=== PATIENT | male | born 1945 | race Caucasian/White ===

== ENCOUNTER 2021-02-19 11:57 | Inpatient (IN) | payer OTHER, MEDICARE ==
[~2021-02-19] VITALS: Ht 188 cm; Wt 77.2 kg
[2021-02-19] MEDS ORDERED: TYLENOL325 MG PO (14:26)
[2021-02-19] MEDS ORDERED: CHILDREN'S ASPI81 M1 PO (14:28)
[2021-02-19] MEDS ORDERED: LIPITOR 20 MG T20 M1 PO (14:30)
[2021-02-19] MEDS ORDERED: MARINOL 2.5 MG2.5 M1 PO (14:33)
[2021-02-19] MEDS ORDERED: MIDODRINE HCL 55 M1 PO (14:36)
[2021-02-19] MEDS ORDERED: SENNA-S 8.6-501 EACH PO ×2 (14:38→14:40)
[2021-02-19] MEDS ORDERED: TRAMADOL 50 MG50 MG PO (14:40)
[2021-02-19] MEDS ORDERED: CLARITIN10 M3 PO (14:41)
--- NOTE | 2021-02-19 16:58 | NUR ---
PATIENT KU COVID RESULTS FROM TESTING THIS DATE, 02/19/21, NOT DETECTED.
[2021-02-19 18:15] VITALS: BP 121/67
--- NOTE | 2021-02-19 19:37 | NUR ---
PT ARRIVED TO UNIT AROUND 1800 AND FAMILY WAS AT BEDSIDE. PT NOTED THAT HE HAS ADVANCED DIRECTIVES, BUT THAT HIS COULD BRING THE PAPERWORK LATER. PT COULD NOT RECALL DETAILS OF THE AD. REPORT GIVEN TO ONCOMING SHIFT AND PT RESTING IN CHAIR WITH NO COMPLAINTS.
--- NOTE | 2021-02-19 23:48 | NUR ---
PT ALERT AND ORIENTED X 4. UP IN RECLINER ALL EVENING. TRANSFERRED TO BED AT WITH ASSIST X 1. CHEST INCISION C/D/I, HEALING. ABD INCISIONS X 5 C/D/I. LEFT CHEST TUBE SITE INCISION C/D/I. PT DENIES PAIN OR DISCOMFORT. BED ALARM ON FOR SAFETY. PT APPEARS TO BE SLEEPING ON HOURLY ROUNDS.
[2021-02-20 04:50] LABS: HEMATOCRIT 25.1 % (42.0-52.0); HEMOGLOBIN 8.3 gm/dL (14.0-18.0); MCH 29.8 pg (26.0-34.0); MCHC 32.9 g/dL (28.0-37.0); MCV 90.6 fL (80.0-100.0); RBC 2.77 mil/uL (4.50-6.00); RDW 15.5 % (10.5-14.5)
[2021-02-20 05:19] LABS: CALCIUM 8.5 mg/dL (8.5-10.1); CREATININE 0.9 mg/dL (0.7-1.3); POTASSIUM 4.6 mmol/L (3.5-5.1)
[2021-02-20] MEDS ORDERED: ASA81BEC PO ×4 (05:37→05:42)
[2021-02-20] MEDS ORDERED: LIPITOR 20 MG T20 M1 PO (05:37)
[2021-02-20] MEDS ORDERED: MARINOL 2.5 MG2.5 M1 PO (05:38)
[2021-02-20] MEDS ORDERED: MIDODRINE HCL2.5 M1 PO (05:39)
[2021-02-20 08:00] VITALS: BP 117/62
[2021-02-20 08:55] LABS: % SATURATION 9 % (20-39); IRON 23 ug/dL (65-175); TIBC 243 ug/dL (250-450)
[2021-02-20 09:22] LABS: FOLIC ACID 6.4 ng/mL (8.6-58.9)
--- NOTE | 2021-02-20 09:41 | NUR ---
Chart review. Cm visited with patient, he is a & o x 4, pleasant and able to make his needs know. Intro to cm, team meeting and dcp. He would like to go home and not get covid. 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 live at home with jean pierre at the [place]. Have stairs, everything on main level. Manage own medication. Drives vehicle. No hh or rehab in the past. PCP Dr Deyvi tello at the [facility]. Support from and daughter.
--- NOTE | 2021-02-20 10:00 | NUR ---
PT SITTING UP IN CHAIR FOR BREAKFAST. PT ABLE TO TAKE MEDS WITH THIN WATER. PT HAS SPLINTING PILLOW IN REACH. PT DENIES ANY PAIN. PT HAS NO EDEMA TO LOWER EXT. PT DIDN'T WANT TO RECIEVE FLU SHOT THIS AM. PT NOT SURE YET ON GETTING THE FLU SHOT. PT STATED HE LIKES TO GO FISHING DUE TO LIVING DOWN BY MEDIA OF [facility] WHEN ASKED ABOUT HIS HOBBIES.
[2021-02-20] MEDS ORDERED: NITROSTAT0.4 M1 SUBLING (11:23)
[2021-02-20] MEDS ORDERED: NORVASC5 M1 PO (11:24)
[2021-02-20] MEDS ORDERED: ADVIL200 M3 PO (11:25)
--- NOTE | 2021-02-20 13:34 | NUR ---
Team meeting, recommendation. Dc 02/24 home with hh t transition to outpatient cardiac rehab, no driving till cleared by . FWW
[2021-02-20 19:20] VITALS: BP 107/61
--- NOTE | 2021-02-21 03:55 | NUR ---
assumed care approx 1900 evening 02/20. pt sitting up in recliner at change of shift resting. assisted into bed and gown at hs. pt took hs meds with water tolerating well. pt appears to be sleeping soundly. bed alarm on and call light in reach. will continue to monitor.
[2021-02-21 07:15] VITALS: BP 109/61
--- NOTE | 2021-02-21 08:42 | NUR ---
ASSUMED CARE AT 0700. PATIENT IS ALERT AND ORIENTEDX4. PATIENT BERG'S, OUTREACH EDUCATOR ARE EQUAL. LUNGS ARE CLEAR AND DEMINISHED. ENCOURAGED PATIENT TO TCDB. CHEST INCISION CONTINUES TO HEAL. LEFT LEG INCISION CONTINUES TO HEAL. PATIENT ABD IS SOFT WITH BSX4. PATIENT IS VOIDING TERENCE COLORED URINE. PATIENT IS UP WITH GAIT BELT AND WALKER. FALL AND SAFETY PROTOCOLS IN PLACE. DENIES PAIN AT THIS TIME. WILL CONTINUE TO MONITER.
--- NOTE | 2021-02-21 13:37 | NUR ---
[facility] will deliver fww on friday prior to dc on 02/24/21. Referral sent to [facility], P # [phone], f # [phone]
[2021-02-21 19:48] VITALS: BP 107/62
--- NOTE | 2021-02-21 23:40 | NUR ---
PT ALERT AND ORIENTED X 4. CHEST AND LEFT LEG INCISIONS C/D/I, HEALING. PT TOOK HS MEDS WITH WATER WITHOUT DIFFICULTY. PT DENIES PAIN OR DISCOMFORT. BED ALARM ON FOR SAFETY. PT APPEARS TO BE SLEEPING ON HOURLY ROUNDS.
[2021-02-22 08:00] VITALS: BP 114/67
--- NOTE | 2021-02-22 09:21 | NUR ---
ADM TYLENOL 325MG X1 FOR PAIN TO RT KNEE. PT WAS WORKING WITH PHYSICAL THERAPY AND HIS KNEE IS STARTING TO HURT.
--- NOTE | 2021-02-22 09:21 | NUR ---
PT FINISHED WALKING WITH THERAPY. PT SITTING IN CHAIR IN ROOM. PT DENIES ANY PAIN AT THIS TIME. PT TOOK MEDS WITH WATER WITHOUT ANY ISSUES. PT LUNGS CLEAR. PT HAS BOWEL SOUNDS. PT HAS INCISION TO STERNAL AREA WITH PRECAUTIONS. PT PLEASANT AND COOROPERATIVE. PT USES WALKER WITH AMBULATION.
[2021-02-22 20:00] VITALS: BP 105/67
--- NOTE | 2021-02-23 04:33 | NUR ---
ASSUMED CARE AT 1900 0F 02/22. PATIENT IS A&OX4, COOPERATIVE AND CALM. REPORTS THAT RIGHT KNEE IS FEELING BETTER THIS EVENING. NO BM FOR A COUPE DAYS, DENIES ABD DISCOMFORT, REPORTS PASSING FLATUS. BS ARE ACTIVE IN ALL 4 QUADRANTS, ABD IS SOFT. SCHEDULED STOOL SOFTNER AND LAXITIVE ADMINISTERED AT HS. URINAL AT BEDSIDE. SLEEPING DURING HOURLY ROUNDS. FALL PRECAUTIONS IN PLACE, CALL LIGHT WITHIN REACH. WILL CONTINUE TO MONITOR.
[2021-02-23 08:00] VITALS: BP 117/76
--- NOTE | 2021-02-23 08:44 | NUR ---
PT WORKING WITH THERAPY. PT UP WALKING WITHOUT A WALKER. PT STATED SOME PAIN TO RT KNEE. PT HAS INCISION TO STERNAL AREA AND LEFT LE. PT TOOK MEDS WHOLE WITH THIN WATER. PT LUNGS CLEAR. PT HAS HYPERACTIVE BS AND ABD IS BLOATED. PT STATED HE HAS NOT HAD A BM IN 3 DAYS. PT STATED HE IS WAITING FOR A BM. NO COMPLAINTS OF NAUSEA.
--- NOTE | 2021-02-23 08:45 | NUR ---
ADM DICLOFINAC CREAM TO RT KNEE AFTER WALKING WITH THERAPY.
[2021-02-23] MEDS ORDERED: VITAMIN B-12500 MCG PO (13:27)
[2021-02-23] MEDS ORDERED: LIPITOR 20 MG T20 M1 PO (13:27)
[2021-02-23] MEDS ORDERED: FOLIC ACID1 MG PO (13:27)
[2021-02-23] MEDS ORDERED: MIDODRINE HCL2.5 M1 PO (13:27)
[2021-02-23] MEDS ORDERED: ARTHRITIS PAIN100 GM TOP (13:29)
[2021-02-23] MEDS ORDERED: FERREX 150 PLU1 EAC1 PO (13:29)
[2021-02-23] MEDS ORDERED: TRIPLE ANTIBI28.4 G3 TOP (13:29)
--- NOTE | 2021-02-23 14:03 | NUR ---
fww delivered by [facility]. AR home tomorrow 02/24/21. PCP Dr Rodgers. Bedside side nurse to fax dc orders and sum to [facility] at fax # [phone], phone # [phone].
--- NOTE | 2021-02-23 18:09 | NUR ---
PT WAS HERE AND WANTED TO KNOW IF PT CAN BE DISCARGED BEFORE 1200 TOMMORROW DUE TO THEY DRIVE 3 HRS BACK HOME. PT DID HAVE X2 BMS TODAY.
[2021-02-23 20:00] VITALS: BP 110/63
--- NOTE | 2021-02-24 04:37 | NUR ---
ASSUMED CARE AT 1900 OF 02/23. PATIENT IS A&OX4, DENIES PAIN OR SHORTNESS OF BREATH. PATIENT REFUSED LAXITIVE AND STOOL SOFTNER AT HS BECAUSE HE REPORTS HAVING A BM TWICE DURING THE DAY. PATIENT CONTINUES TO USE STERNAL PILLOW, AND MAINTAINS STERNAL PRECAUTIONS. STAND BY ASSIST WITH TRANSFERS AND AMBULATION, USING GB. PATIENT WAS ABLE TO PERFORM ADLS BEFORE BED WITH SUPERVISION. URINAL PLACED AT BEDSIDE. FALL PRECAUTIONS IN PLACE, CALL LIGHT WITHIN REACH. WILL CONTINUE TO MONITOR.
[2021-02-24 07:30] VITALS: BP 106/67
--- NOTE | 2021-02-24 10:20 | NUR ---
ASSUMED CARE AT 0700. PATIENT IS ALERT AND ORIENTED X4. PATIENT BERG'S, ORTHOPEDIC NURSE ARE EQUAL. LUNGS ARE CLEAR. ABD IS SOFT WITH BSX4. PATIENT CHEST INCISION CONTINUES TO HEAL. PATIENT HAS RED AREA FROM TAPE ON LEFT SIDE OF CHEST. TRIPLE ABT APPLIED AND SITE WAS LEFT OPEN TO AIR. PATIENT LEFT LEG INCISION IS DRY AND INTACT AND CONTINUES TO HEAL. UP TO THE BATHROOM WITH SBA WITH GAIT BELT TO VOID TERENCE COLORED URINE. PATIENT USES HEART PILLOW WHEN HE NEEDS TO COUGH. FALL AND SAFETY PROTOCOLS IN PLACE. DENIES PAIN . CONTINUES TO PROGRESS TOWARDS D/C GOALS. WILL CONTINUE TO MONITER.
[2021-02-24 10:28] VITALS: BP 106/67
[2021-02-24 11:11] VITALS: BP 106/67
--- NOTE | 2021-02-24 11:38 | NUR ---
DISCHARGE INSTRUCTIONS GIVEN TO PATIENT AND . PATIENT LEFT UNIT PER W/C WITH ALL OF HIS BELONGINGS AND HIS D/C INSTRUCTONS, AND FFW. PATIENT IS SBA FROM BED TO W/C. PATIENT LEFT IN GOOD CONDITION.
--- NOTE | 2021-02-26 07:44 | NUR ---
Faxed dc orders to [facility], fax # [phone]
--- NOTE | 2021-03-05 15:38 | PLAN ---
[facility] [place] [address] REHAB UNIT PLAN OF CARE Name: BENNY NATH Room #: 505-P [facility] IN M.R.#: [id number] Admission: 02/19/21 Attend Phys: Russell Milner MD Discharge: 02/24/21 Date of : 43 Report #: [id number] THIS REPORT FOR: cc: FAM - Family physician unknown FAM - Family physician unknown Russell Milner MD ~ DATE OF SERVICE: 02/21/2021 PROGRESS NOTE/OVERALL PLAN OF CARE HISTORY OF PRESENT ILLNESS: The patient was seen back today in followup. He was in no distress. Alert, appropriate. Midsternal incision appears to be healing well. No focal calf swelling. Transfers varied between mod to min assist, but he is improving. He is ambulating 140 feet with a front-wheeled walker. Lower extremity dressing is contact guard assistance. He is in no distress, appears to be in good spirits. ASSESSMENT: 1. Medical complex with generalized debilitation. 2. Coronary artery disease, status post coronary artery bypass grafting x3, 01/31/2021. 3. Aortic valve replacement, status post repair, 01/31/2021. 4. Orthostatic hypotension. 5. Healthcare-associated pneumonia, resolved. 6. Anemia, iron deficiency and folic acid deficiency. 7. Hyperlipidemia. PLAN: The overall plan of care is based on the pre-admit screen and information garnered from therapy assessments. 1. Estimated length of stay is the plan for him to go home this Friday as per team conference. 2. Medical prognosis reasonably good. 3. Anticipated interventions include the interdisciplinary acute inpatient rehabilitation program. 4. Anticipated functional outcomes would be for the patient to become modified independent with transfers, mobility, ADLs, and to improve his overall endurance, so he can return back home to the home setting. 5. Discharge destination would be back home where he lives with his . Three steps in. 6. Expected therapy by discipline includes PT and OT, 1-1/2 hours per day each 5 days a week throughout the duration of the acute inpatient rehabilitation stay. ADDENDUM: The patient's prognosis for significant practical improvement within a reasonable period of time appears good. Given the patient's complex medical condition and risk of further medical complication, rehabilitation services [address] [address] REHAB UNIT PLAN OF CARE Name: BENNY NATH Room #: 505-P DIS IN [facility].#: [id number] Admission: 02/19/21 Attend Phys: Russell Milner MD Discharge: 02/24/21 Date of : 43 Report #: [id number] could not be safely provided at a lower level of care such as a [facility] facility. <ELECTRONICALLY SIGNED> By: Russell Milner MD 03/05/21 [id number] [id number] Russell Milner MD /nt
== END 2021-02-24 12:00 | disposition home health service (06) | DRG 302 ==
PROVIDERS: ADMIT Physical Medicine & Rehabilitation; ATTEND Physical Medicine & Rehabilitation
DX: I25.10 Atherosclerotic heart disease of native coronary artery without angina pectoris (principal); J18.9 Pneumonia, unspecified organism; G72.81 Critical illness myopathy; I50.32 Chronic diastolic (congestive) heart failure; R53.81 Other malaise; K74.60 Unspecified cirrhosis of liver; Y95 Nosocomial condition; E78.5 Hyperlipidemia, unspecified; D52.9 Folate deficiency anemia, unspecified; K59.00 Constipation, unspecified; I95.1 Orthostatic hypotension; D50.9 Iron deficiency anemia, unspecified; Z95.1 Presence of aortocoronary bypass graft; Z95.2 Presence of prosthetic heart valve; Z79.899 Other long term (current) drug therapy; Z79.82 Long term (current) use of aspirin; Z87.891 Personal history of nicotine dependence
CPT/HCPCS: 10112